=== PATIENT | female | born 1930 | race Caucasian/White ===

== ENCOUNTER 2016-12-08 16:34 | Outpatient (CLI) | payer MEDICARE ==
[2016-12-08 16:43] LABS: RBC/HPF GREATER THAN 50-TNTC HPF (0-3)
[2016-12-08 16:44] LABS: Bacteria/HPF 1+ HPF (None Seen); Crystals/HPF 2+ CA OXALATE HPF (Negative); Renal Epithelial 0-3 HPF (0-3)
== END 2016-12-08 16:35 | disposition home or self-care (01) ==
LOC: MADLABBHPM 16:34
PROVIDERS: ATTEND Family Medicine
DX: R30.0 Dysuria (principal)
CPT/HCPCS: 81015; 87086

== ENCOUNTER 2016-12-10 21:57 | Emergency (ER) | payer MEDICARE ==
[2016-12-10] MEDS ORDERED: Clindamycin 150 MG CAP ONE (22:39)
--- NOTE | 2016-12-10 23:18 | ERRECORD ---
[facility] EMERGENCY RECORD HPI RASH (22:38 LHOD) CHIEF COMPLAINT: Patient presents for evaluation of rash. HISTORIAN: History provided by patient's caregiver. TIME COURSE: TONIGHT WHEN CAREGIVER GOING TO GIVE PATIENT A BATH, NOTED RED RASH ON RIGHT LOWER LEG. 2 DAYS AGO PT STARTED ON LEVAQUIN FOR UTI. PT HAS ALSO HAD COUGH FOR WHICH SHE IS ON BENZONATATE. ROS (22:39 LHOD) CONSTITUTIONAL: Historian denies fever. ENT: HEARING IMPAIRED. CARDIOVASCULAR: Historian denies chest pain. RESPIRATORY: Historian reports cough, denies shortness of breath. GI: Historian denies abdominal pain, denies nausea, denies vomiting. MUSCULOSKELETAL: Historian denies back pain, denies neck pain. SKIN: RASH OF RIGHT LOWER LATERAL LEG. NEUROLOGIC: DEMENTIA. HEMO/LYMPHATIC: Historian reports easy bruising, ON ASA. ALLERGIC/IMMUNOLOGIC: Historian denies hives. NOTES: All systems reviewed, negative except as described above. PAST MEDICAL HISTORY MEDICAL HISTORY: Notes: DEMENITA, BRAIN TUMOR- BENIGN, Past medical history includes cardiac history, arrhythmia, atrial fibrillation, Past medical history includes history of hypertension. VERIFIED 117. (22:22 MCRS) FEMALE SURGICAL HISTORY: RIGHT MASTECTOMY AND LUMPECTOMY, Surgical history of hysterectomy. VERIFIED 17. (22:22 MCRS) PSYCHIATRIC HISTORY: No previous psychiatric history. (22:22 MCRS) SOCIAL HISTORY: Patient denies alcohol use, Patient denies drug use, Patient has no smoking history, Patient denies alcohol use, Patient denies drug use, Patient has no smoking history, Lives at home, with family. (22:22 MCRS) NOTES: Nursing records reviewed. (22:24 LHOD) KNOWN ALLERGIES codeine sulfate penicillin G potassium Sulfa (Sulfonamide Antibiotics) CURRENT MEDICATIONS levofloxacin: TABLET : Strength - 500 mg : ORAL Patient Dose: 500 mg Oral once a day.X5 DAYS - HAS TAKEN 2. (22:12 [facility]) benzonatate: CAPSULE : Strength - 100 mg : ORAL &a-1R&a+25V*p+0X*[id number]*c152B*c15G*c2P*p-0X&a-25V&a+1RName: Yissel Glynn : F85 MedRec: [id number] AcctNum: [id number] Prepared: Kristy Dec 10, 2016 23:38 by Interface Page 1 of 3 pMD [facility] EMERGENCY RECORD Patient Dose: 100 mg Oral 3 times a day (after meals). (22:13 CJEF) loratadine: TABLET : Strength - 10 mg : ORAL Patient Dose: 10 mg Oral once a day. (22:14 CJEF) cod liver oil: CAPSULE : ORAL Patient Dose: 400 mg Oral once a day. (22:14 CJEF) lutein: CAPSULE : Strength - 20 mg : ORAL Patient Dose: 20 mg Oral once a day. (22:15 CJEF) Flonase: SPRAY, SUSPENSION : Strength - 50 mcg : NASAL Patient Dose: 2 spray(s) Nares Both 2 times a day. (22:16 CJEF) Namenda: TABLET : Strength - 10 mg : ORAL Patient Dose: 10 mg Oral 2 times a day (before meals). (22:17 CJEF) sertraline: TABLET : Strength - 100 mg : ORAL Patient Dose: 50 mg Oral once a day (at bedtime). (22:17 CJEF) aspirin: TABLET : Strength - 81 mg : ORAL Patient Dose: 81 mg Oral once a day. (22:17 CJEF) VITAL SIGNS (22:05 CJEF) VITAL SIGNS: BP: 141/83 (Sitting), Pulse: 97, Resp: 20, Temp: 97.4 (Tympanic), Pain: 0, O2 sat: 97 on Room Air, Time: 12/10/2016 22:05. PHYSICAL EXAM (22:40 LHOD) CONSTITUTIONAL: Vital signs reviewed, Patient afebrile, Pulse normal, Blood pressure normal, Respiratory rate normal, AWAKE, ALERT, SITTING IN WHEELCHAIR IN NO DISTRESS. RESPIRATORY CHEST: Respiratory exam included findings of no respiratory distress, Breath sounds clear, OCCAS. DRY COUGH. CARDIOVASCULAR: Cardiovascular exam included findings of heart rate regular rate and rhythm, Heart sounds normal. ABDOMEN FEMALE: Abdominal exam included findings of abdomen nontender. BACK: Back exam normal. UPPER EXTREMITY: Upper extremity exam normal. LOWER EXTREMITY: RIGHT LOWER LEG DISTAL LATERAL 10 CM BY 10 CM AREA OF SLIGHTLY RAISED ERYTHEMATOUS RASH. NON-TENDER. NO PUSTULES OR VESICLES. NO CALF SWELLING EXCEPT BENEATH AREA OF RASH. NEURO: AWAKE, ALERT, HEARING IMPAIRED. FOLLOWED COMMAND, BUT OTHERWISE NOT CONVERSANT. SKIN: 10 CM BY 10 CM OF SLIGHTLY RAISED ERYTHEMATOUS RASH OF RIGHT LOWER LEG DISTAL LATERAL. NO REDNESS OR LESIONS OF &a-1R&a+25V*p+0X*c6372R*c152B*c15G*c2P*p-0X&a-25V&a+1RName: Yissel Glynn : F85 MedRec: [id number] AcctNum: [id number] Prepared: Kristy Dec 10, 2016 23:38 by Interface Page 2 of 3 pMD [facility] EMERGENCY RECORD FEET. MEDICATION ADMINISTRATION SUMMARY Drug Name: Cleocin capsule, Dose Ordered: 300 mg, Route: Oral, Status: Given, Time: 22:40 12/10/2016, Detailed record available in Medication Service section. DOCTOR NOTES (22:44 LHOD) TEXT: SINCE PT REPORTEDLY ALLERGIC TO PENICILLINS AND SULFA ANTIBIOTIC, I CHOSE CLEOCIN FOR STREP AND STAPH COVERAGE. CAREGIVER ADVISED IF RASH WORSENS PT MAY NEED TO RETURN FOR IV ANTIBIOTICS AND/ OR ADMISSION. PROBLEM LIST No recorded problems DIAGNOSIS (22:36 LHOD) FINAL: PRIMARY: RIGHT LOWER LEG CELLULITIS. PRESCRIPTION (22:36 LHOD) Cleocin capsule: CAPSULE (HARD, SOFT, ETC.) : 300 mg : ORAL : Quantity: 1 Unit: tab(s) Route: ORAL Schedule: 4 times a day Dispense: 28 May substitute. Refills: No Refills . NOTES: No Refills. DISPOSITION PATIENT: Disposition Type: Discharge, Disposition: *Discharge Home, Condition: Good. (22:36 LHOD) Patient left the department. (22:57 [facility]) [place]: JOSEFINAEF=PILAR Herrera, Francesca LHOD=MD Jerica, Jana MCRS=PILAR Escalera, Lonny &a-1R&a+25V*p+0X*w5299V*c152B*c15G*c2P*p-0X&a-25V&a+1RName: Yissel Glynn : F85 MedRec: [id number] AcctNum: [id number] Prepared: Kristy Dec 10, 2016 23:38 by Interface Page 3 of 3 pMD MTDD
--- NOTE | 2016-12-10 23:24 | PICIS ---
[facility] EMERGENCY RECORD TRIAGE (WedDec 10, 2016 22:08 CJ) TRIAGE NOTES: RIGHT LEG PINKISH RED WITH SWELLING AT 1+/2+ NON PITTING - NO PAIN VERBALIZED - SYMPTOMS SEEN THIS DAY. (WedDec 10, 2016 22:08 CJEF) PATIENT: NAME: Yissel Glynn, AGE: 85, GENDER: female, : [id number], TIME OF GREET: WedDec 10, 2016 21:58, PREFERRED LANGUAGE: Lao, ETHNICITY: Not or , ECODE BILLING MAP: [facility], SSN: [id number], Zip Code: [address], KG WEIGHT: 43.09, PHONE: , , , PERSON ID: [id number], PCP: MD RACHEL, LORETA. (WedDec 10, 2016 22:08 CJEF) COMPLAINT: SWELLING AND REDNESS TO RIGHT ANKLE. (WedDec 10, 2016 22:08 CJEF) ADMISSION: URGENCY: 4 Non Urgent, ADMISSION SOURCE: Home, TRANSPORT: CAR, BED: ED -04. (WedDec 10, 2016 22:08 CJEF) ASSESSMENT: Assessment: RIGHT LOWER LEG PINKISH RED WITH 1+/2+ NONPITTING EDEMA- NO PAIN ASSOCIATED, Symptoms began THIS EVENING. (22:22 MCRS) SIRS SCORING: Heart Rate 55-109 (0), Temp range 96.8-101.1 (0), respiratory rate 12-24 (0), Mental Status altered: no (0). (22:22 MCRS) PROVIDERS: TRIAGE NURSE: Francesca Herrera RN. (WedDec 10, 2016 22:08 CJEF) VITAL SIGNS: BP 141/83, (Sitting), Pulse 97, Resp 20, Temp 97.4, (Tympanic), Pain 0, O2 Sat 97, on Room Air, Time 12/10/2016 22:05. (22:05 CJEF) PREVIOUS VISIT ALLERGIES: codeine sulfate, penicillin G potassium. (WedDec 10, 2016 22:08 CJEF) codeine sulfate, penicillin G potassium. (22:22 MCRS) KNOWN ALLERGIES codeine sulfate penicillin G potassium Sulfa (Sulfonamide Antibiotics) CURRENT MEDICATIONS levofloxacin: TABLET : Strength - 500 mg : ORAL Patient Dose: 500 mg Oral once a day.X5 DAYS - HAS TAKEN 2. (22:12 CJEF) benzonatate: CAPSULE : Strength - 100 mg : ORAL Patient Dose: 100 mg Oral 3 times a day (after meals). (22:13 CJEF) loratadine: TABLET : Strength - 10 mg : ORAL Patient Dose: 10 mg Oral once a day. (22:14 CJEF) cod liver oil: CAPSULE : ORAL Patient Dose: 400 mg Oral once a day. (22:14 CJEF) lutein: &a-1R&a+25V*p+0X*y8263E*c152B*c15G*c2P*p-0X&a-25V&a+1RName: Yissel Glynn : F85 MedRec: [id number] AcctNum: [id number] Prepared: Kristy Dec 10, 2016 23:38 by Interface Page 1 of 5 pMD [facility] EMERGENCY RECORD CAPSULE : Strength - 20 mg : ORAL Patient Dose: 20 mg Oral once a day. (22:15 CJEF) Flonase: SPRAY, SUSPENSION : Strength - 50 mcg : NASAL Patient Dose: 2 spray(s) Nares Both 2 times a day. (22:16 CJEF) Namenda: TABLET : Strength - 10 mg : ORAL Patient Dose: 10 mg Oral 2 times a day (before meals). (22:17 CJEF) sertraline: TABLET : Strength - 100 mg : ORAL Patient Dose: 50 mg Oral once a day (at bedtime). (22:17 CJEF) aspirin: TABLET : Strength - 81 mg : ORAL Patient Dose: 81 mg Oral once a day. (22:17 CJEF) VITAL SIGNS (22:05 CJEF) VITAL SIGNS: BP: 141/83 (Sitting), Pulse: 97, Resp: 20, Temp: 97.4 (Tympanic), Pain: 0, O2 sat: 97 on Room Air, Time: 12/10/2016 22:05. NURSING ASSESSMENT: EXTREMITY LOWER (22:23 MCRS) CONSTITUTIONAL: Patient arrives ambulatory, Unsteady gait, ASSISTED TO WHEELCHAIR - ADVANCED DEMENTIA, History obtained from, family member: DAUGHTER -PB, Patient appears comfortable, Patient cooperative, Patient alert, Patient complains of PINKISH RED RIGHT LOWER LEG WITH SWELLING. LEFT LOWER EXTREMITY: Left lower extremity assessment findings include capillary refill less than 2 seconds, Skin color normal, Skin temperature warm, Distal sensation intact, Muscle tone normal. RIGHT LOWER EXTREMITY: Right lower extremity assessment findings include capillary refill less than 2 seconds, Skin color, red, to LOWER LEG ABOVE ANKLE TO MID CALF, Skin temperature warm, muscle strength 4, +1 edema present, dorsalis pedis pulse is +3, Inspection findings include swelling, to RIGHT LOWER LEG. SAFETY: Side rails up, Cart/Stretcher in lowest position, Family at bedside, Call light within reach, Hospital ID band on. NURSING PROCEDURE: DISCHARGE NOTE (22:55 MCRS) DISCHARGE: Patient discharged to home, ambulating without assistance, family driving, accompanied by other family member, Summary of Care printed/ provided, Patient requested and was provided an electronic copy of Discharge Instructions, Transition record given to patient, Discharge instructions given to patient, Simple or moderate discharge teaching performed, Prescriptions given and instructions on side effects given, Medication reconciliation form given, Above person(s) verbalized understanding of discharge instructions and follow-up care, Patient treated and evaluated by &a-1R&a+25V*p+0X*l8577V*c152B*c15G*c2P*p-0X&a-25V&a+1RName: Yissel Glynn : F85 MedRec: [id number] AcctNum: [id number] Prepared: [facility] Dec 10, 2016 23:38 by Interface Page 2 of 5 D [facility] EMERGENCY RECORD physician. BELONGINGS: Belongings remain with patient. NOTES: Patient tolerated procedure well. SAFETY: Side rails up, Cart/Stretcher in lowest position, Family at bedside, Call light within reach, Hospital ID band on. MEDICATION ADMINISTRATION SUMMARY Drug Name: Cleocin capsule, Dose Ordered: 300 mg, Route: Oral, Status: Given, Time: 22:40 12/10/2016, Detailed record available in Medication Service section. MEDICATION SERVICE (22:40 [facility]) Cleocin capsule: Order: Cleocin capsule (clindamycin HCl) - Dose: 300 mg : Oral Ordered by: Jana Pizano MD Entered by: Jana Pizano MD [facility] Dec 10, 2016 22:35 , Acknowledged by: Lonny Escalera RN [facility] Dec 10, 2016 22:37 Documented as given by: Lonny Escalera RN [facility] Dec 10, 2016 22:40 Patient, Medication, Dose, Route and Time verified prior to administration. Amount given: 300mg, Site: Medication administered P.O., Patient appears Awake and alert- acceptable, Correct patient, time, route, dose and medication confirmed prior to administration, Patient advised of actions and side-effects prior to administration, Allergies confirmed and medications reviewed prior to administration, Patient in position of comfort, Side rails up, Cart in lowest position, Family at bedside. HPI RASH (22:38 LHOD) CHIEF COMPLAINT: Patient presents for evaluation of rash. HISTORIAN: History provided by patient's caregiver. TIME COURSE: TONIGHT WHEN CAREGIVER GOING TO GIVE PATIENT A BATH, NOTED RED RASH ON RIGHT LOWER LEG. 2 DAYS AGO PT STARTED ON LEVAQUIN FOR UTI. PT HAS ALSO HAD COUGH FOR WHICH SHE IS ON BENZONATATE. ROS (22:39 LHOD) CONSTITUTIONAL: Historian denies fever. ENT: HEARING IMPAIRED. CARDIOVASCULAR: Historian denies chest pain. RESPIRATORY: Historian reports cough, denies shortness of breath. GI: Historian denies abdominal pain, denies nausea, denies vomiting. MUSCULOSKELETAL: Historian denies back pain, denies neck pain. SKIN: RASH OF RIGHT LOWER LATERAL LEG. NEUROLOGIC: DEMENTIA. HEMO/LYMPHATIC: Historian reports easy bruising, ON ASA. ALLERGIC/IMMUNOLOGIC: Historian denies hives. &a-1R&a+25V*p+0X*e7944I*c152B*c15G*c2P*p-0X&a-25V&a+1RName: Yissel Glynn : F85 MedRec: [id number] AcctNum: [id number] Prepared: [facility] Dec 10, 2016 23:38 by Interface Page 3 of 5 pMD [facility] EMERGENCY RECORD NOTES: All systems reviewed, negative except as described above. PAST MEDICAL HISTORY MEDICAL HISTORY: Notes: DEMENITA, BRAIN TUMOR- BENIGN, Past medical history includes cardiac history, arrhythmia, atrial fibrillation, Past medical history includes history of hypertension. VERIFIED 1-12-17. (22:22 MCRS) FEMALE SURGICAL HISTORY: RIGHT MASTECTOMY AND LUMPECTOMY, Surgical history of hysterectomy. VERIFIED 12-10-16. (22:22 MCRS) PSYCHIATRIC HISTORY: No previous psychiatric history. (22:22 MCRS) SOCIAL HISTORY: Patient denies alcohol use, Patient denies drug use, Patient has no smoking history, Patient denies alcohol use, Patient denies drug use, Patient has no smoking history, Lives at home, with family. (22:22 MCRS) NOTES: Nursing records reviewed. (22:24 LHOD) PHYSICAL EXAM (22:40 LHOD) CONSTITUTIONAL: Vital signs reviewed, Patient afebrile, Pulse normal, Blood pressure normal, Respiratory rate normal, AWAKE, ALERT, SITTING IN WHEELCHAIR IN NO DISTRESS. RESPIRATORY CHEST: Respiratory exam included findings of no respiratory distress, Breath sounds clear, OCCAS. DRY COUGH. CARDIOVASCULAR: Cardiovascular exam included findings of heart rate regular rate and rhythm, Heart sounds normal. ABDOMEN FEMALE: Abdominal exam included findings of abdomen nontender. BACK: Back exam normal. UPPER EXTREMITY: Upper extremity exam normal. LOWER EXTREMITY: RIGHT LOWER LEG DISTAL LATERAL 10 CM BY 10 CM AREA OF SLIGHTLY RAISED ERYTHEMATOUS RASH. NON-TENDER. NO PUSTULES OR VESICLES. NO CALF SWELLING EXCEPT BENEATH AREA OF RASH. NEURO: AWAKE, ALERT, HEARING IMPAIRED. FOLLOWED COMMAND, BUT OTHERWISE NOT CONVERSANT. SKIN: 10 CM BY 10 CM OF SLIGHTLY RAISED ERYTHEMATOUS RASH OF RIGHT LOWER LEG DISTAL LATERAL. NO REDNESS OR LESIONS OF FEET. EVENTS TRANSFER: Triage to Emergency Main ED -04. (22:08 [facility]) Removed from Emergency Main ED -04. (22:57 MCRS) DOCTOR NOTES (22:44 LHOD) TEXT: SINCE PT REPORTEDLY ALLERGIC TO PENICILLINS AND SULFA ANTIBIOTIC, I CHOSE CLEOCIN FOR STREP AND STAPH COVERAGE. CAREGIVER ADVISED IF RASH WORSENS PT MAY NEED TO RETURN FOR IV ANTIBIOTICS AND/ OR ADMISSION. PROBLEM LIST No recorded problems &a-1R&a+25V*p+0X*k7029P*c152B*c15G*c2P*p-0X&a-25V&a+1RName: Yissel Glynn : F85 MedRec: [id number] AcctNum: [id number] Prepared: Kristy Dec 10, 2016 23:38 by Interface Page 4 of 5 pMD [facility] EMERGENCY RECORD DIAGNOSIS (22:36 LHOD) FINAL: PRIMARY: RIGHT LOWER LEG CELLULITIS. DISPOSITION PATIENT: Disposition Type: Discharge, Disposition: *Discharge Home, Condition: Good. (22:36 LHOD) Patient left the department. (22:57 MCRS) INSTRUCTION (22:37 LHOD) DISCHARGE: CELLULITIS. FOLLOWUP: MD RACHEL, LORETA, [facility], [address] [place] [id number], [phone], Follow up with Primary Care Physician in 1 day. SPECIAL: ELEVATE LEG. RECHECK WITH HER DOCTOR OR HERE IN ER IN NEXT 24 HOURS. *RETURN IF WORSE. PRESCRIPTION (22:36 LHOD) Cleocin capsule: CAPSULE (HARD, SOFT, ETC.) : 300 mg : ORAL : Quantity: 1 Unit: tab(s) Route: ORAL Schedule: 4 times a day Dispense: 28 May substitute. Refills: No Refills . NOTES: No Refills. IMAGING (22:54 MCRS) *SUPPLY CHARGE SHEET: Image captured from scanner. *DISCHARGE INSTRUCTIONS RECEIPT: Image captured from scanner. ADMIN DIGITAL SIGNATURE: PILAR Escalera, Lonny. (23:17 MCRS) MD Pizano Lefayne. (23:35 LHOD) [place]: CJEF=PILAR Herrera, Francesca LHOD=MD Pizano Lefayne MCRS=PILAR Escalera, Lonny &a-1R&a+25V*p+0X*[id number]*c152B*c15G*c2P*p-0X&a-25V&a+1RName: Yissel Glynn : F85 MedRec: [id number] AcctNum: [id number] Prepared: Kristy Dec 10, 2016 23:38 by Interface Page 5 of 5 pMD MTDD
== END 2016-12-10 22:48 | disposition home or self-care (01) ==
LOC: MADERS 21:57
DX: L03.115 Cellulitis of right lower limb (principal); I48.91 Unspecified atrial fibrillation; I10 Essential (primary) hypertension
CPT/HCPCS: 99282

== ENCOUNTER 2017-01-14 14:11 | Inpatient (IN) | payer MEDICARE ==
[~2017-01-14 14:11] MED LIST: Sodium Chloride 0.9% 1,000 ML BAG ONE
[2017-01-14 14:51] LABS: #Basophils 0.1 thou/uL (0.0-0.2); #Eosinphils 0.1 thou/uL (0.0-0.7); #Lymphocytes 1.1 thou/uL (1.20-3.40); #Monocytes 0.6 thou/uL (0.11-0.59); #Neutrophils 3.3 thou/uL (1.40-6.50); %Eosinophils 2.5 % (0.0-10.0); %Lymphocytes 21.7 % (21.0-51.0); %Monocytes 10.8 % (0.0-10.0); Mean Corpuscular HGB CONC 33.3 g/dL (32.0-36.0); Mean Corpuscular Hemoglobin 29.9 pg (27.0-31.0); Mean Corpuscular Volume 89.7 fl (81.0-99.0); Platelet Count 128 thou/uL (130-400); RBC Distribution Width 12.8 % (11.5-14.5); Red Blood Cell (RBC) Count 4.67 mill/uL (4.20-5.40); White Blood Cell (WBC) Count 5.1 thou/uL (4.8-10.8)
[2017-01-14 15:02] LABS: Bilirubin Small (Negative); Blood, Urine Small (Negative); Clarity Clear (Clear); Glucose, Urine (Dipstick) Negative (Negative); Leukocyte Small (Negative); Nitrite Negative (Negative); Protein, Urine (Dipstick) 30 mg/dL (Neg-Trace); Specific Gravity, Urine 1.022 (1.002-1.036); Urobilinogen 0.2 mg/dL (0.2-1.0); pH, Urine 5.5 (5.0-9.0)
[2017-01-14 15:04] LABS: Icto Negative (Negative)
[2017-01-14 15:05] LABS: ALT (SGPT) 16 U/L (0-55); AST (SGOT) 18 U/L (5-34); Albumin 4.1 g/dL (3.4-4.8); Alkaline Phosphatase 89 U/L (40-150); Anion Gap 15 mmol/L (10-20); BUN (Urea Nitrogen) 18 mg/dL (9.8-20.1); Bilirubin, Total 0.5 mg/dL (0.2-1.2); Calc. Creatinine Clearance 0 mL/min (70-130); Calcium 9.1 mg/dL (7.8-10.44); Carbon Dioxide 21 mmol/L (23-31); Chloride 101 mmol/L (98-107); Estimated GFR-MDRD 69; Globulin 2.5 g/dL (2.4-3.5); Glucose 133 mg/dL (83-110); Protein, Total 6.6 g/dL (5.8-8.1); Sodium 133 mmol/L (136-145)
[2017-01-14 15:06] LABS: Bacteria/HPF 1+ HPF (None Seen)
--- NOTE | 2017-01-14 15:19 | RAD ---
UPRIGHT PORTABLE CHEST 1 VIEW: Date: 01/14/17 HISTORY: 86-year-old female with weakness. COMPARISON: 04/19/08. FINDINGS: Monitor leads overlie the chest. Atherosclerosis of the aorta. Old granulomatous disease. Scattered chronic lung changes with some blunting of the right costophrenic angle and biapical pleural thicken ing. Surgical clips in the right axilla. IMPRESSION: Stable chronic changes bilaterally. No acute intrathoracic disease. Postop changes in the right uppe r chest. POS: MAMIE
[2017-01-14 15:43] LABS: Lactic Acid 1.8 mmol/L (0.5-2.2)
[2017-01-14] MEDS ORDERED: cefTRIAXone\\ROCEPHIN 1 GM VIAL ONE (15:50)
[2017-01-14 17:08] LABS: CKMB 2.7 ng/mL (0-6.6); Troponin I 0.121 ng/mL (< 0.028)
[2017-01-14] MEDS ORDERED: Acetaminophen 325 MG TAB PO PRN (20:09)
[2017-01-14] MEDS ORDERED: Lantiseptic Ointment 130 GM JAR TOP PRN (20:18)
[2017-01-14] MEDS ORDERED: Fluticasone Propionate Nasal Spray 16 gm Bottle NASAL SCH ×2 (21:00→22:15)
[2017-01-14] MEDS: Sodium Chloride 0.9% 1,000 ML IV SCH (22:34)
[2017-01-14] MEDS: Lantiseptic Ointment 130 GM JAR TOP SCH (22:35)
[2017-01-15] MEDS: cefTRIAXone\\ROCEPHIN 1 GM in Sodium Chloride 0.9% 100 ML IVPB SCH ×2 (03:59→17:17)
[2017-01-15] MEDS: Sodium Chloride 0.9% 1,000 ML IV SCH (04:08)
[2017-01-15 05:59] LABS: Anion Gap 17 mmol/L (10-20); BUN (Urea Nitrogen) 12 mg/dL (9.8-20.1); Calc. Creatinine Clearance 44 mL/min (70-130); Calcium 8.1 mg/dL (7.8-10.44); Carbon Dioxide 16 mmol/L (23-31); Chloride 109 mmol/L (98-107); Estimated GFR-MDRD Greater than 90; Glucose 80 mg/dL (83-110); Potassium 3.7 mmol/L (3.5-5.1); Sodium 138 mmol/L (136-145)
[2017-01-15 08:27] LABS: CKMB 2.2 ng/mL (0-6.6); Troponin I 0.048 ng/mL (< 0.028)
[2017-01-15] MEDS: Aspirin 81 mg Enteric Coated Tablet PO SCH (08:54)
[2017-01-15] MEDS: Fluticasone Propionate Nasal Spray 16 gm Bottle NASAL SCH ×2 (08:55→20:32)
[2017-01-15] MEDS: Lantiseptic Ointment 130 GM JAR TOP SCH ×2 (08:56→20:34)
--- NOTE | 2017-01-15 11:23 | HP ---
ATTENDING/PRIMARY CARE PHYSICIAN: Dr. Sammie Coe REASON FOR ADMISSION: Severe dehydration, intractable UTI. HISTORY OF PRESENT ILLNESS: Ms. Glynn is a very pleasant 86-year-old female with significant history of advancing dementia, depression, anxiety, and recurrent UTI. The patient has been treated with oral antibiotic 3 times in a row over the 2-3 months, secondary to persistent UTI. She was recently seen by the urologist a couple weeks ago for persistent microscopic hematuria and was again diagnosed with urinary tract infection. ST that time she was treated by the Urologist with Bactrim. The patient just completed her Bactrim a day or two ago. The patient was sent to the clinic by her daughter/primary manager radiation, Faustina Rojas, due to "not feeling well". Daughter reports that the patient has not been eating adequately She barely drinks water as she refuses liquids as well. She lost significant 7 pounds over the past 3 months. Last night the daughter reports tactile fever. Temperature was not documented. After giving a dose of ibuprofen the daughter reports that the patient's temperature went away. Today, daughter reports that the patient does not seem to be herself. She reports general weakness and more confused than usual. Her initial temperature in the clinic was within normal limits, but she was noted to be tachycardic from 118 to 120s with significant hypotension. The patient was unable to collect urine despite drinking a bottle of water in the clinic. Daughter reports that she has decreased urine output for the last few days at home. The patient was subsequently transferred to [place] [facility] for further evaluation, possible IV hydration. At the ER the patient's findings were consistent with severe dehydration and significant pyuria by urinalysis. There was no significant leukocytosis noted. Her cardiac enzymes were indeterminate x2 , with troponin levels worsening. EKG was reported to be tachycardic with some PVCs, otherwise no acute ischemic changes per ER report. Her chest x-ray showed no acute cardiopulmonary process. After discussion of the ER physician with the patient's responsible alliance party/daughter , Ms. Faustina Rojas, who acts as the surrogate decision maker for patient. The daughter does not want further cardiac intervention and agreed to stay in [facility] for supportive medical management only. I was notified ER physician of the above, and the patient was subsequently admitted at [facility]. Empiric IV antibiotic therapy and volume hydration was started from the ER. The patient is currently on Rocephin IV. When evaluated, the patient was resting comfortably in bed, no family was present at bedside. The patient was awake and alert and conversant, but confused.She remains chest pain free. No other issues reported. PAST MEDICAL HISTORY: 1. Advanced dementia with behavioral disturbances in the form of sundowning. 2. Senile dementia with depression and anxiety. 3. Low BMI. 4. History of benign brain tumor/small meningioma. By CT scan [place]. No further recommendations by Neuro, but mainly observation. 5. History of Breast CA, S/p unilateral radical mastectomy. PAST SURGICAL HISTORY: Radical breast mastectomy, secondary to breast cancer. MEDICATIONS: Namenda 10 mg p.o. b.i.d., sertraline 50 mg p.o. at bedtime. Lutein extract 115/0.7 mg 1 cap daily, cranberry extract/vitamin C1 cap daily, cod liver oil 1 cap daily, fluticasone nasal spray b.i.d. as needed, aspirin 81 mg p.o. daily. ALLERGIES: CODEINE, MIRTAZAPINE, PENICILLIN and SULFA. REVIEW OF SYSTEMS: Limited secondary to patient's dementia. Daughter reports no lethargy, chills, cough, colds, sputum production, pain with breathing, shortness of breath, dyspnea on exertion, chest pain, paroxysmal nocturnal dyspnea, or leg edema, cyanosis, nausea, vomiting, bloody urine, new motor or sensory losses, tremors, seizures, skin rashes, lesions or ulcers. Reports loss of appetite, gradual weight loss, intermittent abdominal pain, dysuria, frequency, urgency. Reports urinary incontinence, confusion, intermittent anxiety, agitation and restlessness. LABORATORY: WBC 5.1, hemoglobin 14, hematocrit 41.9, platelets 128. Neutrophils 64. Sodium 133, potassium 4.0, carbon dioxide 21, BUN 18, creatinine 0.79 with a GFR of 69, glucose 133. Lactic acid 1.8, calcium 9.1. Liver function tests within normal limits. CK 2.8, then 2.7, troponin 0.107 and then 0.121, beta natriuretic peptide 17.8. Albumin 4.1. Urine; WBC greater than 50 to TNTC, urine RBC 4.6. Urine bacteria 1+. Urine nitrite negative, ketone trace. Urine protein 30. PHYSICAL EXAMINATION: VITAL SIGNS: Blood pressure 157/77, temperature 97.6, pulse 99, respirations 20 , O2 saturation 97%, weight 93 pounds, height 5 feet 1 inch. GENERAL: The patient is awake, alert, confused, disoriented. She answers that she recognizes me, but could not recall the name. She knows that she is not at home, but could not recall the name of the place. Comfortably resting in bed, not in distress. HEENT: Normocephalic, atraumatic. PERRL intact. EOM. Anicteric sclerae. Oral mucosa is very dry. No lesions. NECK: Supple. No LAD, no JVD, no bruit. CHEST: Normal excursion, clear to auscultation bilaterally. Nonlabored breathing. HEART: Mildly tachycardic. Normal S1 and S2. No murmurs. ABDOMEN: Flat, soft, normoactive bowel sounds, nondistended. Reports tenderness in the suprapubic region bilaterally on direct palpation. Positive CVA tenderness, left greater than the right. No rebound, no guarding. EXTREMITIES: Thin limbs. No edema, no cyanosis. NEURO: Nonfocal. DTRs 2+, unsteady gait. SKIN: Intact. Dry, poor skin turgor and elasticity. PSYCHIATRIC: Confused, appropriate demeanor and manner. ASSESSMENT AND PLAN: 1. An 86-year-old with advanced dementia, intractable urinary tract infection , failed outpatient therapy x3 courses of oral antibiotics. Now complicated with severe dehydration secondary to poor oral intake. Reported acute febrile illness, likely secondary to dehydration. We will continue empiric IV antibiotic therapy pending cultures. We will continue volume hydration and encouraged to increase caloric intake. Dietary consult for nutritional supplement. 2. Elevated troponins, Probable acute coronary syndrome versus acute heart strain due to severe dehydration. No evidence of acute ischemic changes per EKG as reported from the ER. The patient is asymptomatic. We will repeat cardiac enzymes in the morning. The patient's daughter declined aggressive cardiac interventions at this time. She is aware that [facility] does not have the capability of cardiac monitoring, telemetry or ICU care. Daughter, Faustina Rojas/HANNAHTroy,, who acts as the surrogate decision maker is comfortable [place] medical management only. She also confirms patient's DNR code status. 3. We will continue current home medications as modified per list. 4. GI prophylaxis with PPI. DVT prophylaxis with SCD. 5. Further recommendations depending on the hospital course. 6 ]. CODE STATUS: DNR/DNI, as confirmed by the daughter. VASILIYD
[2017-01-15] MEDS: Sodium Chloride 0.45% 1,000 ML IV SCH ×2 (16:20→20:34)
[2017-01-15] MEDS: ALPRAZolam 0.25 MG TAB PO PRN (20:30)
[2017-01-16] MEDS: cefTRIAXone\\ROCEPHIN 1 GM in Sodium Chloride 0.9% 100 ML IVPB SCH ×2 (04:02→16:30)
[2017-01-16] MEDS: Lantiseptic Ointment 130 GM JAR TOP SCH ×2 (08:25→20:18)
[2017-01-16] MEDS: Aspirin 81 mg Enteric Coated Tablet PO SCH (08:25)
[2017-01-16] MEDS: Fluticasone Propionate Nasal Spray 16 gm Bottle NASAL SCH ×2 (08:25→19:29)
[2017-01-16] MEDS: Sodium Chloride 0.45% 1,000 ML IV SCH ×4 (08:28→21:20)
[2017-01-16] MEDS: Polyethylene Glycol 3350 17 GM Packet PO SCH ×2 (11:44→21:20)
[2017-01-17] MEDS: cefTRIAXone\\ROCEPHIN 1 GM in Sodium Chloride 0.9% 100 ML IVPB SCH (04:53)
[2017-01-17] MEDS ORDERED: cefTRIAXone\\ROCEPHIN 1 GM in Sodium Chloride 0.9% 100 ML IVPB SCH (07:15)
[2017-01-17] MEDS: Fluticasone Propionate Nasal Spray 16 gm Bottle NASAL SCH ×2 (08:26→20:00)
[2017-01-17] MEDS: Lantiseptic Ointment 130 GM JAR TOP SCH ×2 (08:26→21:00)
[2017-01-17] MEDS: Aspirin 81 mg Enteric Coated Tablet PO SCH (08:26)
[2017-01-17] MEDS: Polyethylene Glycol 3350 17 GM Packet PO SCH (08:26)
[2017-01-17] MEDS: Sodium Chloride 0.45% 1,000 ML IV SCH (12:30)
[2017-01-17] MEDS: ALPRAZolam 0.25 MG TAB PO PRN (20:50)
[2017-01-18] MEDS: Nystatin 500,000 UNITS/5 ML UDCUP SSW SCH ×5 (02:48→20:03)
[2017-01-18] MEDS: Sodium Chloride 0.45% 1,000 ML IV SCH ×2 (02:50→15:43)
[2017-01-18] MEDS ORDERED: cefTRIAXone\\ROCEPHIN 1 GM in Sodium Chloride 0.9% 100 ML IVPB SCH (04:00)
[2017-01-18] MEDS ORDERED: Sodium Chloride 0.45% 1,000 ML BAG ONE (07:00)
[2017-01-18] MEDS ORDERED: Sodium Chloride 0.9% 1,000 ML BAG ONE (07:00)
[2017-01-18] MEDS: Aspirin 81 mg Enteric Coated Tablet PO SCH (08:37)
[2017-01-18] MEDS: Lantiseptic Ointment 130 GM JAR TOP SCH ×2 (08:37→20:06)
[2017-01-18] MEDS: Fluticasone Propionate Nasal Spray 16 gm Bottle NASAL SCH ×2 (08:38→20:06)
[2017-01-18] MEDS: Polyethylene Glycol 3350 17 GM Packet PO SCH (08:39)
[2017-01-18 19:39] VITALS: BMI 17.2
[2017-01-18] MEDS: ALPRAZolam 0.25 MG TAB PO PRN (20:03)
[2017-01-18 21:28] VITALS: BP 143/81; TEMP 97.6
== END 2017-01-18 22:58 | disposition swing bed (61) | DRG 690 ==
LOC: MADERS 14:11 → MADMS 16:26
PROVIDERS: ADMIT Family Medicine; ATTEND Family Medicine
DX: N39.0 Urinary tract infection, site not specified (principal); E46 Unspecified protein-calorie malnutrition; G30.9 Alzheimer's disease, unspecified; F02.81 Dementia in other diseases classified elsewhere, unspecified severity, with behavioral disturbance; R13.10 Dysphagia, unspecified; E86.0 Dehydration; K59.00 Constipation, unspecified; R62.7 Adult failure to thrive; F41.8 Other specified anxiety disorders; Z66 Do not resuscitate; D32.0 Benign neoplasm of cerebral meninges
CPT/HCPCS: 36415; 51701; 71010; 80048; 80053; 81003; 81015; 82553; 83605; 83880; 84484; 85025; 87040; 87086; 93005; 96361; 96365; A4216; A4353; G8978-GP-CK; G8979-GP-CI; G8996-GN-CJ; G8997-GN-CJ; J0696; J7050

== ENCOUNTER 2017-01-18 16:34 | Inpatient (IN) | payer MEDICARE ==
[2017-01-18] MEDS ORDERED: Acetaminophen 325 MG TAB PO PRN (23:40)
[2017-01-18] MEDS ORDERED: Lantiseptic Ointment 130 GM JAR TOP PRN (23:40)
[2017-01-19 00:17] VITALS: BMI 17.2
[2017-01-19] MEDS: cefTRIAXone\\ROCEPHIN 1 GM in Sodium Chloride 0.9% 100 ML IVPB SCH (04:09)
[2017-01-19] MEDS: Polyethylene Glycol 3350 17 GM Packet PO SCH (08:27)
[2017-01-19] MEDS: Aspirin 81 mg Enteric Coated Tablet PO SCH (08:28)
[2017-01-19] MEDS: LUTEIN PO SCH (08:29)
[2017-01-19] MEDS: VIT C PO SCH (08:29)
[2017-01-19] MEDS: ZEAXANTHIN PO SCH (08:29)
[2017-01-19] MEDS: CRANBERRY PO SCH (08:29)
[2017-01-19] MEDS: Fluticasone Propionate Nasal Spray 16 gm Bottle NASAL SCH ×2 (08:29→20:29)
[2017-01-19] MEDS: COD LIVER OIL PO SCH (08:29)
[2017-01-19] MEDS: ALPRAZolam 0.25 MG TAB PO PRN (20:29)
[2017-01-20] MEDS: cefTRIAXone\\ROCEPHIN 1 GM in Sodium Chloride 0.9% 100 ML IVPB SCH (03:58)
[2017-01-20] MEDS: Fluticasone Propionate Nasal Spray 16 gm Bottle NASAL SCH ×2 (08:50→20:07)
[2017-01-20] MEDS: Polyethylene Glycol 3350 17 GM Packet PO SCH (08:50)
[2017-01-20] MEDS: COD LIVER OIL PO SCH (08:51)
[2017-01-20] MEDS: VIT C PO SCH (08:51)
[2017-01-20] MEDS: ZEAXANTHIN PO SCH (08:51)
[2017-01-20] MEDS: CRANBERRY PO SCH (08:51)
[2017-01-20] MEDS: Aspirin 81 mg Enteric Coated Tablet PO SCH (08:51)
[2017-01-20] MEDS: LUTEIN PO SCH (08:51)
[2017-01-20 19:41] VITALS: BP 113/57; TEMP 98.4
[2017-01-20] MEDS: ALPRAZolam 0.25 MG TAB PO PRN (20:07)
[2017-01-21] MEDS: Polyethylene Glycol 3350 17 GM Packet PO SCH (09:16)
[2017-01-21] MEDS: Aspirin 81 mg Enteric Coated Tablet PO SCH (09:16)
[2017-01-21] MEDS: VIT C PO SCH (09:17)
[2017-01-21] MEDS: Fluticasone Propionate Nasal Spray 16 gm Bottle NASAL SCH (09:17)
[2017-01-21] MEDS: COD LIVER OIL PO SCH (09:17)
[2017-01-21] MEDS: ZEAXANTHIN PO SCH (09:17)
[2017-01-21] MEDS: LUTEIN PO SCH (09:17)
[2017-01-21] MEDS: CRANBERRY PO SCH (09:17)
--- NOTE | 2017-01-22 00:26 | DIS ---
DATE OF ADMISSION: 01/14/2017 DATE OF DISCHARGE TO EXTENDED CARE: 01/18/2017 DATE OF DISCHARGE TO HOME: 01/21/2017 REASON FOR ADMISSION: Severe dehydration, general weakness and confusion. FINAL DIAGNOSES: 1. Alzheimer's dementia with behavioral disturbances. 2. Intractable recurrent urinary tract infection, failed outpatient therapy x3 , treated with IV antibiotic. 3. Severe dehydration secondary to poor oral intake, improved. 4. Elevated troponins, probable acute coronary syndrome versus acute heart strain, due to severe dehydration with no evidence of acute ischemic changes per EKG. Family declines further cardiac evaluation. 5. Failure to thrive/moderate malnutrition. 6. Anxiety/depression. 7. General weakness, deconditioning. 8. Abnormality of gait/unsteady gait, requiring assisted device and supervision all the time. 9. History of breast cancer, status post unilateral radical mastectomy, in remission. 10. The patient is DO NOT RESUSCITATE/ DO NOT INTUBATE. DISCHARGE MEDICATIONS: 1. Sertraline 50 mg p.o. daily. 2. Namenda 10 mg p.o. b.i.d. 3. Xanax 0.25 mg t.i.d. p.r.n. for anxiety/agitation. 4. Polyethylene glycol 17 grams p.o. daily, to hold if with loose bowel movements. 5. Fluticasone 1 spray per naris b.i.d. p.r.n. 6. Aspirin 81 mg p.o. daily. DISPOSITION: Home with family. CONDITION ON DISCHARGE: Stable. DIET: Regular as tolerated. ACTIVITY: To use rolling walker at all times. Discharged to home on palliative care/hospice care per family's request. HISTORY OF PRESENT ILLNESS AND HOSPITAL COURSE: Ms. Glynn is a very pleasant, 86- year-old, female with significant history of advanced dementia associated with depression, anxiety, and recurrent UTI. The patient was recently treated 3 times in a row over the past 2 to 3 months secondary to persistent UTI. She was also recently seen by the urologist a couple of weeks ago prior to hospital admission for persistent microscopic hematuria. She was then diagnosed again with urinary tract infection and was treated with another course of oral antibiotic. She completed the Bactrim 2 days prior to admission. The patient initially went to the clinic on 01/14/2017 secondary to reported tactile febrile illness noted by the daughter at home. This is associated with increased confusion, not eating and not feeling well. The patient was noted to be clinically dehydrated at that time in the clinic. She was unable to void for a urinalysis sample. She was also noted to be hypotensive, tachycardic, and more confused. The patient was subsequently transferred to [place] [facility] for further evaluation and appropriate management. Baseline labs in the ER, showed significant pyuria, microscopic hematuria, without significant leukocytosis. Patient was subsequently admitted for volume hydration and empiric IV antibiotic therapy for intractable recurrent UTI. She received empiric treatment with Rocephin IV that she completed for 7 days. Her urine culture came back negative. This was probably secondary to recent oral antibiotic treatment as outpatient. The patient remains afebrile during the whole course. She started eating some with direct meal supervision. There was a speech therapy evaluation made during this hospitalization and was found to have no significant dysphagia or odynophagia. Eating issues is deemed to be secondary to advanced dementia. Patient's overall oral intake improved over the course, but again, patient needs supervision and cuing when eating or swallowing. During this hospitalization, patient's initial cardiac enzymes was indeterminate x2. There was no acute ischemic changes noted by the ER physician in her admitting EKG. After volume hydration, Troponin went down to 0.04 range. Family declined further cardiac evaluation nor aggressive interventions secondary to advanced age and dementia. Family also confirms the DNR/DNI status per surrogate decision makers consisting of two daughters, Susi and Faustina Jaramillo. Family as represented by her daughter/primary director distribution. [place] [facility] [place] [facility] in [place] for supportive medical management only. Patient remains chest pain free during the whole course. During her hospital course, patient was also noted to be generally weak and is unable to get up or transfer on her own without one man max assist. She did try physical and occupational therapy during this admission for which she improved some. There was a report of confusion that limits the therapy, but daughter reports that she can continue with it at home. I have several discussions with the two daughters on separate occasions. I had several face to face encounter with Faustina Rojas, and had telephone encounter with Susi (the first POA who lives out of town). Both the daughters were into agreement that they do not want aggressive interventions for the patient. Both daughters declined options for enteral feeding. Both daughters refused PEG tube feeding per patient's wishes and both daughters were into agreement to take the patient back home for palliative care with hospice. Patient was referred to [facility] per family's request prior to discharge. Vital signs prior to discharge, blood pressure 113/57, temperature 98.4, pulse 72, respiration rate 18, O2 sats 96% at room air. Time spent on this discharge 32 minutes. [facility]
== END 2017-01-21 12:55 | disposition hospice, home (50) | DRG 690 ==
LOC: MADMS 23:01
PROVIDERS: ADMIT Family Medicine; ATTEND Family Medicine
DX: N39.0 Urinary tract infection, site not specified (principal); E44.0 Moderate protein-calorie malnutrition; I24.9 Acute ischemic heart disease, unspecified; G30.9 Alzheimer's disease, unspecified; F02.81 Dementia in other diseases classified elsewhere, unspecified severity, with behavioral disturbance; E86.0 Dehydration; F41.9 Anxiety disorder, unspecified; F32.9 Major depressive disorder, single episode, unspecified; R62.7 Adult failure to thrive; Z85.3 Personal history of malignant neoplasm of breast; Z66 Do not resuscitate; D32.9 Benign neoplasm of meninges, unspecified
CPT/HCPCS: G8978-GP-CK; G8979-GP-CJ; J0696; J7050